=== PATIENT | male | born 1955 | race Caucasian/White ===

== ENCOUNTER 2016-11-22 11:14 | Outpatient (CLI) | payer OTHER | END 2016-11-22 11:15 | disposition home or self-care (01) | DX: G47.33 Obstructive sleep apnea (adult) (pediatric) (principal) ==

== ENCOUNTER 2017-01-07 13:30 | Outpatient (CLI) | payer OTHER ==
--- NOTE | 2017-01-07 15:32 | XRAY Report ---
TWO VIEW CHEST: 01/07/2017 CLINICAL INDICATION: Bronchitis, history of positive PPD. FINDINGS: Frontal and lateral views of the chest demonstrate a normal cardiac silhouette. Calcified left hilar lymph nodes are noted. No focal consolidation, effusion, or pneumothorax is present. IMPRESSION: CHANGES OF OLD GRANULOMATOUS DISEASE. NO EVIDENCE OF ACUTE CARDIOPULMONARY DISEASE. JOB #: [id number] EXT JOB #:[id number]
== END 2017-01-07 13:31 | disposition home or self-care (01) ==
LOC: DI 13:30
PROVIDERS: ATTEND Family Medicine
DX: J20.9 Acute bronchitis, unspecified (principal); R79.89 Other specified abnormal findings of blood chemistry; Z87.898 Personal history of other specified conditions
CPT/HCPCS: 71020

== ENCOUNTER 2018-03-01 08:00 | Outpatient (CLI) | payer OTHER ==
[2018-03-01 13:29] LABS: BASOPHILS # (AUTO) 0.1 10^3/uL (0.0-0.1); BASOPHILS % (AUTO) 0.8 %; EOSINOPHILS # (AUTO) 0.3 10^3/uL (0.0-0.7); EOSINOPHILS % (AUTO) 4.2 %; HGB - HEMOGLOBIN 15.5 g/dL (14.0-18.0); LYMPHOCYTES # (AUTO) 2.3 10^3/uL (1.5-3.5); LYMPHOCYTES % (AUTO) 31.5 %; MEAN CORPUSCULAR HEMOGLOBIN 32.5 pg (27.0-31.0); MEAN CORPUSCULAR HGB CONC 34.6 g/dL (32.0-36.0); MEAN PLATELET VOLUME 10.9 fL (7.4-11.4); MONOCYTES # (AUTO) 0.6 10^3/uL (0.0-1.0); MONOCYTES % (AUTO) 7.6 %; NEUTROPHILS # (AUTO) 4.1 10^3/uL (1.5-6.6); NEUTROPHILS % (AUTO) 55.9 %; PLT - PLATELET COUNT 175 10^3/uL (130-450); RED BLOOD COUNT 4.77 10^6/uL (4.70-6.10); RED CELL DISTRIBUTION WIDTH 13.8 % (12.0-15.0); WHITE BLOOD COUNT 7.4 x10^3/uL (4.8-10.8)
[2018-03-01 13:44] LABS: ALBUMIN 4.1 g/dL (3.2-5.5); ALBUMIN/GLOBULIN RATIO 1.5 (1.0-2.2); ALKALINE PHOSPHATASE 51 IU/L (42-121); ALT ALANINE AMINOTRANSFERASE 23 IU/L (10-60); AST ASPARTATE AMINOTRANSFERASE 26 IU/L (10-42); BILIRUBIN,TOTAL 1.1 mg/dL (0.2-1.0); BUN - BLOOD UREA NITROGEN 24 mg/dL (6-20); CARBON DIOXIDE - CO2 25 mmol/L (21-32); CHLORIDE 102 mmol/L (101-111); CHOL/HDL RATIO 5.7 (<5.0); CHOLESTEROL 239 mg/dL; CREATININE 1.3 mg/dL (0.6-1.2); GFR - MDRD 55 (>89); GLUCOSE 112 mg/dL (70-100); HDL CHOLESTEROL 42 mg/dL; LDL CHOLESTEROL,CALCULATED 161 mg/dL; LDL/HDL RATIO 3.8 (<3.6); SODIUM 136 mmol/L (135-145); TOTAL PROTEIN 6.8 g/dL (6.7-8.2); VLDL CHOLESTEROL 36 mg/dL
== END 2018-03-01 08:01 | disposition home or self-care (01) ==
LOC: LAB.WCP 08:00
PROVIDERS: ATTEND Family Medicine
DX: E78.5 Hyperlipidemia, unspecified (principal); Z12.5 Encounter for screening for malignant neoplasm of prostate; E03.9 Hypothyroidism, unspecified
CPT/HCPCS: 36415; 80053; 80061; 83721; 84153; 84443; 85025

== ENCOUNTER 2018-11-02 07:16 | Outpatient (CLI) | payer OTHER ==
[2018-11-02 13:23] LABS: BASOPHILS % (AUTO) 0.4 %; EOSINOPHILS # (AUTO) 0.2 10^3/uL (0.0-0.7); EOSINOPHILS % (AUTO) 1.9 %; HGB - HEMOGLOBIN 14.9 g/dL (14.0-18.0); LYMPHOCYTES # (AUTO) 2.2 10^3/uL (1.5-3.5); LYMPHOCYTES % (AUTO) 23.8 %; MEAN CORPUSCULAR HEMOGLOBIN 31.3 pg (27.0-31.0); MEAN CORPUSCULAR HGB CONC 33.4 g/dL (32.0-36.0); MEAN CORPUSCULAR VOLUME 93.7 fL (80.0-94.0); MONOCYTES # (AUTO) 0.6 10^3/uL (0.0-1.0); MONOCYTES % (AUTO) 6.1 %; NEUTROPHILS # (AUTO) 6.4 10^3/uL (1.5-6.6); NEUTROPHILS % (AUTO) 67.8 %; PLT - PLATELET COUNT 244 10^3/uL (130-450); RED BLOOD COUNT 4.75 10^6/uL (4.70-6.10); RED CELL DISTRIBUTION WIDTH 13.7 % (12.0-15.0); WHITE BLOOD COUNT 9.4 x10^3/uL (4.8-10.8)
[2018-11-02 13:34] LABS: ALBUMIN 3.8 g/dL (3.2-5.5); ALBUMIN/GLOBULIN RATIO 1.2 (1.0-2.2); BILIRUBIN,TOTAL 1.1 mg/dL (0.2-1.0); CREATININE 1.4 mg/dL (0.6-1.2)
== END 2018-11-02 07:17 | disposition home or self-care (01) ==
LOC: LAB.WCP 07:16
PROVIDERS: ATTEND Family Medicine
DX: R79.89 Other specified abnormal findings of blood chemistry (principal); E03.9 Hypothyroidism, unspecified; E78.5 Hyperlipidemia, unspecified; R73.9 Hyperglycemia, unspecified
CPT/HCPCS: 36415; 80053; 84443; 85025

== ENCOUNTER 2020-07-04 08:19 | Outpatient (CLI) | payer MEDICARE, OTHER ==
--- NOTE | 2020-07-04 10:19 | XRAY Report ---
PROCEDURE: Elbow 3 View RT INDICATIONS: RIGHT ELBOW PAIN TECHNIQUE: 3 views of the elbow were acquired. COMPARISON: None FINDINGS: Bones: No fractures or dislocations. Osteoarthritic changes in the elbow joint are seen. No suspici ous bony lesions. Soft tissues: No elbow joint effusion. No suspicious soft tissue calcifications. IMPRESSION: Elbow joint osteoarthritis. No fracture or dislocation. No significant joint effusion. Reviewed by: Rinku Zavala MD on 07/04/2020 9:18 AM [facility] Approved by: Rinku Zavala MD on 07/04/2020 9:18 AM [facility] Station ID: [id number]
--- NOTE | 2020-07-04 10:40 | XRAY Report ---
PROCEDURE: Shoulder 3 View RT INDICATIONS: RIGHT SHOULDER IMPINGEMENT SYNDROME TECHNIQUE: 3 views of the shoulder were acquired. COMPARISON: None. FINDINGS: Bones: No fractures or dislocations. No suspicious bony lesions. Osteoarthritic changes are noted i nvolving acromioclavicular joint and glenohumeral joint. Visualized ribs appear intact. Soft tissues: No suspicious soft tissue calcifications. IMPRESSION: No shoulder fracture or dislocation. Mild to moderate acromioclavicular joint and glenoh umeral joint osteoarthritis. Reviewed by: Rinku Zavala MD on 07/04/2020 9:38 AM [facility] Approved by: Rinku Zavala MD on 07/04/2020 9:38 AM [facility] Station ID: [id number]
--- NOTE | 2020-07-04 11:03 | XRAY Report ---
PROCEDURE: Chest 2 View X-Ray INDICATIONS: POSITIVE PPD TECHNIQUE: 2 view(s) of the chest. COMPARISON: None. FINDINGS: Surgical changes and devices: None. Lungs and pleura: No pleural effusions or pneumothorax. Lungs are clear. Mediastinum: Mediastinal contours are normal. Heart size is normal. Bones and chest wall: No suspicious bony abnormalities. Soft tissues appear unremarkable. IMPRESSION: No acute cardiopulmonary pathology. No radiographic evidence of active TB. Reviewed by: Rinku Zavala MD on 07/04/2020 10:01 AM [facility] Approved by: Rinku Zavala MD on 07/04/2020 10:01 AM [facility] Station ID: [id number]
== END 2020-07-04 23:59 | disposition home or self-care (01) ==
LOC: DI.WCP 08:19
PROVIDERS: ATTEND Internal Medicine
DX: M19.021 Primary osteoarthritis, right elbow (principal); M19.011 Primary osteoarthritis, right shoulder; M75.41 Impingement syndrome of right shoulder; R76.11 Nonspecific reaction to tuberculin skin test without active tuberculosis

== ENCOUNTER 2020-07-24 07:15 | Outpatient (CLI) | payer MEDICARE ==
[2020-07-24 13:32] LABS: BASOPHILS # (AUTO) 0.1 10^3/uL (0.0-0.1); BASOPHILS % (AUTO) 0.9 %; EOSINOPHILS # (AUTO) 0.2 10^3/uL (0.0-0.7); EOSINOPHILS % (AUTO) 2.9 %; HCT - HEMATOCRIT 45.9 % (42.0-52.0); HGB - HEMOGLOBIN 15.2 g/dL (14.0-18.0); LYMPHOCYTES # (AUTO) 2.2 10^3/uL (1.5-3.5); LYMPHOCYTES % (AUTO) 27.4 %; MEAN CORPUSCULAR HEMOGLOBIN 31.9 pg (27.0-31.0); MEAN CORPUSCULAR HGB CONC 33.1 g/dL (32.0-36.0); MEAN CORPUSCULAR VOLUME 96.2 fL (80.0-94.0); MEAN PLATELET VOLUME 11.9 fL (7.4-11.4); MONOCYTES # (AUTO) 0.6 10^3/uL (0.0-1.0); MONOCYTES % (AUTO) 7.6 %; NEUTROPHILS % (AUTO) 60.7 %; PLT - PLATELET COUNT 200 10^3/uL (130-450); RED BLOOD COUNT 4.77 10^6/uL (4.70-6.10); RED CELL DISTRIBUTION WIDTH 13.6 % (12.0-15.0); WHITE BLOOD COUNT 8.2 x10^3/uL (4.8-10.8)
[2020-07-24 13:56] LABS: ALBUMIN 4.1 g/dL (3.2-5.5); ALBUMIN/GLOBULIN RATIO 1.4 (1.0-2.2); ALKALINE PHOSPHATASE 52 IU/L (42-121); ALT ALANINE AMINOTRANSFERASE 24 IU/L (10-60); AST ASPARTATE AMINOTRANSFERASE 21 IU/L (10-42); BILIRUBIN,TOTAL 1.4 mg/dL (0.2-1.0); BUN - BLOOD UREA NITROGEN 17 mg/dL (6-20); CALCIUM 9.3 mg/dL (8.5-10.3); CARBON DIOXIDE - CO2 26 mmol/L (21-32); CHLORIDE 103 mmol/L (101-111); CHOL/HDL RATIO 7.1 (<5.0); CHOLESTEROL 250 mg/dL; CREATININE 1.5 mg/dL (0.6-1.2); GFR - MDRD 47 (>89); GLUCOSE 109 mg/dL (70-100); HDL CHOLESTEROL 35 mg/dL; LDL CHOLESTEROL,CALCULATED 170 mg/dL; LDL/HDL RATIO 4.9 (<3.6); POTASSIUM 4.2 mmol/L (3.5-5.0); SODIUM 137 mmol/L (135-145); TOTAL PROTEIN 7.1 g/dL (6.7-8.2); TRIGLYCERIDES 225 mg/dL; VLDL CHOLESTEROL 45 mg/dL
[2020-07-24 14:04] LABS: THYROID STIMULATING HORMONE 12.05 uIU/mL (0.34-5.60)
[2020-07-24 14:13] LABS: CREATININE,URINE 209.4 mg/dL; MICROALBUM/CREATININE RATIO,UR 2.4 ug/mg (<30.0); MICROALBUMIN,URINE 0.5 mg/dL (0-300.0)
[2020-07-24 15:00] LABS: FREE T4 (FREE THYROXINE) 0.89 ng/dL (0.58-1.64)
[2020-07-24 19:37] LABS: ESTIMATED AVERAGE GLUCOSE 117 mg/dL (70-100); HEMOGLOBIN A1c% 5.7 % (4.27-6.07)
== END 2020-07-24 23:59 | disposition home or self-care (01) ==
LOC: LAB.WCP 07:15
PROVIDERS: ATTEND Internal Medicine
DX: E78.2 Mixed hyperlipidemia (principal); R73.01 Impaired fasting glucose; Z12.5 Encounter for screening for malignant neoplasm of prostate; E03.9 Hypothyroidism, unspecified; E78.5 Hyperlipidemia, unspecified
CPT/HCPCS: 36415; 80053; 80061; 82043; 82570; 83036; 84439; 84443; 85025; G0103; 83721; 84153

== ENCOUNTER 2020-08-06 16:06 | Outpatient (CLI) | payer MEDICARE ==
[2020-08-06 17:01] VITALS: BP 114/78
--- NOTE | 2020-08-06 17:01 | SLEEP CARE CONSULTATION ---
Information from patient questionnaire entered by Svitlana Chapin. I have reviewed and concur with the information entered by Svitlana Chapin. This document represents the service I personally performed and the decisions made by me, Mayelin Fonseca ARNP. History of Present Illness Service Date and Time: 08/06/2020 1606 Reason for Visit: New patient, Previously diagnosed sleep apnea, Re-establish care Chief Complaint: reports: Snoring, Observed pauses in breathing, Frequent awakenings at night Date of Onset: 10 + years Usual bedtime: 10:00 - 11:00 PM Time it takes to fall asleep: 10-15 min Snores at night: Yes Observed to quit breathing while asleep: Yes Sleeps alone due to snoring: No Number of times waking at night: 1-2 times Reasons for waking at night: reports: Pain, Bathroom. denies: Choking, Snoring, Gasping for air Toss, Turn, or Twitch while sleeping: No Recalls having dreams: No Usually gets out of bed at: 6:30 AM Feels refreshed in the morning: Yes Morning headache: No Sleepy or fatigued during the day: Yes Ever fallen asleep while driving: No Takes day naps: No Dreams during day naps: No Prior sleep studies: Yes Year and Where: 2013 [facility] Type of Sleep Study: Polysomnography Additional HPI information: I had the pleasure of seeing NAFISA TAVAREZ today regarding the possibility of him being able to restart his CPAP therapy. He was originally diagnosed with obstructive sleep apnea with an average AHI of 11.9. He has not been using his machine for the last 2 years. - Parasomnia Symptoms Ever been unable to move upon waking from sleep: No Walks in sleep: No Talks in sleep: No Ever acted out dreams in sleep: No Ever felt weak in the knees when startled or emotional: Yes Bothered by creepy, crawly, restless sensations in legs: No Problems with memory or concentration: No Subjective Initial [place] Sleepiness Scale score: 5 (in 2020) Past Medical History Past Medical History: reports: Arthritis, Hypothyroidism, GERD. 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 Patient is and lives in [place]. Have you smoked in the past 12 months: Yes Cigarettes per day (20/pack): 20 Years of smokin Quit date: 2004 Smoking Pack Years: 15.0 Alcohol use: Yes Alcohol amount and frequency: Occasionally Caffeine use: Yes Caffeine amount and frequency: 4 cups daily Family History Family history of sleep disordered breathing: Yes (Father, daughter (sleep apnea)) Family Hx Sleep Apnea: Father: Snoring, Sleep apnea - Treated Allergies and Home Medications Drug allergies reviewed: Yes (Statins) Home medication list reviewed: Yes Allergy and home medication list: Levothyroxine 50 mcg Review of Systems Weight gain over past 5 years: 10 Cardiovascular: denies: high blood pressure Respiratory: reports: shortness of breath, sputum production, chronic cough Gastrointestinal: reports: heartburn Neurological: denies: headaches Psychiatric: denies: anxiety, depression Ear/Nose/Throat: reports: nasal congestion, sinus problems, wisdom teeth removed. denies: tonsillectomy Endocrine: reports: thyroid disease Musculoskeletal: reports: joint pain, neck pain Immunologic: reports: sneezing (runny nose) Physical Exam Blood Pressure: 114/78 Cuff size: wrist Heart Rate: 76 O2 Saturation: 98 Height: 5 ft 10 in Weight: 241 lb Body Mass Index: 34.5 BMI Classification: Obese Nostrils: patent to airflow Turbinates: swollen Mouth and throat: narrow oropharynx Uvula visualization: 25% Mallampati Class III Tongue: enlarged in size with teeth powell on lateral edges Tonsils: 1+ Neck: normal w/o lymphadenopathy or thyromegaly Heart: regular rate and rhythm Lungs: clear bilaterally Impression and Plan 1. Obstructive Sleep Apnea-Hypopnea Syndrome, as previously diagnosed in 2014 and as suggested by a continued history of loud and irregular snoring, observed cessation of breath while asleep, and fatigue. He would like to restart his CPAP therapy. I advised the patient that he will need to repeat a sleep study for us to verify his diagnosis and severity before we can restart his therapy. He voiced understanding. I informed the patient that we can do a HST sleep study and obtained agreement to proceed. * Schedule polysomnography/HST. * Avoid long distance driving or driving when feeling sleepy. * Avoid alcohol, sedative and muscle relaxant around bedtime. * Attempt to lose weight. * Review instructions provided by trained office staff on how to prepare for the sleep study. * Return for follow-up after sleep study completed. Visit Type: In Office Time Spent with Patient (minutes): 30 Provider Statement: I spent 100% of the Face to Face Visit with the patient with greater than 50% spent counseling the patient and coordination of care.
== END 2020-08-06 16:07 | disposition home or self-care (01) ==
LOC: SC 16:06
PROVIDERS: ATTEND Nurse Practitioner Family
DX: G47.33 Obstructive sleep apnea (adult) (pediatric) (principal); E66.9 Obesity, unspecified; Z68.34 Body mass index [BMI] 34.0-34.9, adult
CPT/HCPCS: 99203; G0463; 99212

== ENCOUNTER 2020-08-21 16:11 | Outpatient (CLI) | payer MEDICARE | END 2020-08-21 16:12 | disposition home or self-care (01) | LOC: SC 16:11 | PROVIDERS: ATTEND Nurse Practitioner Family | DX: G47.33 Obstructive sleep apnea (adult) (pediatric) (principal); R09.02 Hypoxemia | CPT/HCPCS: G0399 ×2; 95806 ==

== ENCOUNTER 2020-08-26 15:56 | Outpatient (CLI) | payer MEDICARE ==
--- NOTE | 2020-08-26 16:35 | SLEEP CARE CONSULTATION ---
Information from patient questionnaire entered by Svitlana Chapin. I have reviewed and concur with the information entered by Svitlana Chapin. This document represents the service I personally performed and the decisions made by , Mayelin Fonseca ARNP. History of Present Illness Service Date and Time: 08/26/2020 1556 Initial [place] Sleepiness Scale score: 5 (in 2020) Current [place] Sleepiness Scale score: 10 Additional HPI information: NAFISA TAVAREZ returns for follow up and results of the recently performed home sleep study. I explained the pathophysiology behind obstructive sleep apnea. We then spent quite a bit of time discussing different treatment options. For mild obstructive sleep apnea, surgery and oral appliance are alternatives to nasal CPAP therapy but in moderate or severe cases, nasal CPAP is the most effective a nd reliable treatment. The patient would like to restart the nasal CPAP therapy. Nasal autoCPAP set at 4-15 cmH20 will be ordered with rationale explained. A manual titration study will be ordered if unable to find optimal pressure with office adjustments. Sleep Study - Results Type of Sleep Study: Home sleep study Prior sleep studies: Yes Year and Where: 2013 [facility] Polysomnography/Home Sleep Study results: Physician Impression: The quality of the study is good. The length of the study is adequate (> 240 minutes). Please also see the tabulated and graphic data. 1. Obstructive Sleep Apnea-Hypopnea (ICD-10 G47.33), moderate, with an AHI of 24.1/hr and dia SaO2 of 78%. During the study, the patient had 135 apneas (134 obstructive, 0 central, 1 mixed) and 47 hypopneas. The longest episode lasted 63.0 seconds. The respiratory events occurred more frequently during supine sleep (supine AHI was 26.3 and non-supine, 14.22). 2. Hypoxemia (ICD-10 R09.02), moderate, with the lowest oxygen saturation of 78 % and 8.7 minutes with SaO2 under 90%. Baseline oxygen saturation was normal (Average oxygen saturation was 94%). Allergies and Home Medications Home medication list reviewed: Yes (reduced levothyroxine to 50 mcg) Review of Systems Review of systems same as previous: Yes (no changes) Physical Exam Heart Rate: 76 O2 Saturation: 98 Height: 5 ft 10 in Weight: 234 lb Body Mass Index: 33.5 BMI Classification: Obese Impression and Plan 1. Obstructive Sleep Apnea-Hypopnea Syndrome, moderate, with lowest oxygen saturation of 78%. Patient had previous diagnosis of sleep apnea but needed to re-qualify for treatment since he stopped using the machine 2 years ago. Positive pressure therapy could benefit gastric reflux. The patient will be re- started on nasal autoCPAP therapy with pressure set at 4-15 cmH2O. Patient would like to use the machine he has which he states is about 5 years old. I discussed options for getting a new machine since it was 5 years old but he decided that he would use the old one. A manual titration study will be completed if unable to find optimal treatment pressure with office adjustments. Compliance guidelines also reviewed. A copy of compliance guidelines will be given for reference at check out. Because the apnea is more severe supine, I instructed to avoid sleeping supine using pillow positioning until able to start CPAP use. 2. Hypoxemia, moderate. Patient's lowest oxygen saturation was 78 % and he spent 8.7 minutes with SaO2 under 90%. His baseline oxygen saturation average oxygen saturation was 94% which is normal. Follow up with PCP as necessary. * Nasal auto CPAP therapy, pressure at 4-15 cm H2O. * Attempt to lose weight. * Avoid alcohol consumption near bedtime. * Avoid supine sleep until using CPAP. * The patient is again cautioned about driving until sleepiness completely resolves. * Return one month after CPAP obtained. I will assess response to therapy and compliance at that time. Counseling Topics: Weight loss health impact Visit Type: In Office Time Spent with Patient (minutes): 21 Provider Statement: I spent 100% of the Face to Face Visit with the patient with greater than 50% spent counseling the patient and coordination of care.
== END 2020-08-26 15:57 | disposition home or self-care (01) ==
LOC: SC 15:56
PROVIDERS: ATTEND Nurse Practitioner Family
DX: G47.33 Obstructive sleep apnea (adult) (pediatric) (principal); R09.02 Hypoxemia; E66.9 Obesity, unspecified; Z68.33 Body mass index [BMI] 33.0-33.9, adult
CPT/HCPCS: 99213; G0463; 99212

== ENCOUNTER 2020-10-24 16:00 | Outpatient (CLI) | payer MEDICARE ==
--- NOTE | 2020-10-24 16:30 | SLEEP CARE CONSULTATION ---
Information from patient questionnaire entered by Svitlana Chapin. I have reviewed and concur with the information entered by Svitlana Chapin. This document represents the service I personally performed and the decisions made by , Mayelin Fonseca ARNP. History of Present Illness Service Date and Time: 10/24/2020 1600 Previous diagnosis: Moderate, Obstructive Sleep Apnea-Hypopnea Syndrome AHI: 24.1 (11.4 in 2013) Reason for follow up: first compliance after device update Equipment type: CPAP Equipment obtained from: [employer] (getting supplies as needed) Mask style: Nasal Backup mask available: No (will keep old mask when replaced ) Last cushion change: 1 month Prior sleep studies: Yes Year and Where: 2020 and 2013 [facility] Type of Sleep Study: Home sleep study HPI additional information: NAFISA TAVAREZ was diagnosed to have moderate, AHI 24.1, obstructive sleep apnea- hypopnea syndrome and returned today for CPAP therapy first compliance after updating device follow-up. CPAP Compliance Data - Data Reviewed with Patient Average duration of nightly device use: 5 h 13 min Compliance rate %: 60 Current pressure setting (cmH2O): 4-15 (median 9.0, avg 11.4, max 12.0) Humidity settin Heated hose settin Average residual AHI: 4.2 Average large leak: 0 sec Subjective Missed days of use due to: reports: other (caregiving with autistic grandson) Patient concerns: reports: nasal congestion. denies: aerophagia, mask discomfort, air blowing in eyes, mask leak noise, condensation in mask/hose (occasional, due to work situation mostly ([employer] environment)), dry mouth, nose, throat, epistaxis, other Observed to snore while using device: No Current pressure setting perceived as: comfortable On therapy, patient: reports: sleeping better, awakening more refreshed, being more awake and alert during the day, more rested overall. denies: drowsiness while driving Initial [place] Sleepiness Scale score: 5 (in 2020) Current [place] Sleepiness Scale score: 7 Allergies and Home Medications Home medication list reviewed: Yes (no changes) Review of Systems Review of systems same as previous: Yes (no changes) Physical Exam Heart Rate: 67 O2 Saturation: 99 Height: 5 ft 10 in Weight: 235 lb Body Mass Index: 33.7 BMI Classification: Obese Impression and Plan 1. Obstructive Sleep Apnea-Hypopnea Syndrome, moderate, with fair treatment compliance and fair apnea control. On CPAP therapy, the patient has better sleep quality and is more rested overall. He does gets some nasal congestion occasionally that happens on days he is working. He works in a [employer] environment and is not always able to wear good PPE (harder to get since Covid started). He likes the pressure setting and would like to continue at current settings. He is satisfied with treatment. He is only 60% compliant in last 30 days. He has time he falls asleep without his mask on because he is resting with his autistic grandson until he falls asleep and will fall asleep in his grandson's room. He has had several days where he does not get at least four hours of sleep which is reducing his compliance. I advised him to use with all sleep and try to not fall asleep before going back to own bed for sleep. He voiced understanding. I will have him follow up in 1 month to recheck compliance. Patient's apnea severity and rationale for treatment to reduce apnea, improve sleep quality and reduce cardiovascular and cerebrovascular events was reviewed. I also reviewed the benefit of consistent device use of CPAP for gastric reflux. * Continue autoCPAP pressure at 4-15 cmH2O * Notify me if snoring with mask or feeling that the pressure is too much or too little * Attempt to lose weight * Call this office if any problems using CPAP * Return for follow up in 1 months, or sooner if concerns arise Counseling Topics: Spare mask, Weight loss health impact Visit Type: In Office Time Spent with Patient (minutes): 19 Provider Statement: I spent 100% of the Face to Face Visit with the patient with greater than 50% spent counseling the patient and coordination of care.
== END 2020-10-24 16:01 | disposition home or self-care (01) ==
LOC: SC 16:00
PROVIDERS: ATTEND Nurse Practitioner Family
DX: G47.33 Obstructive sleep apnea (adult) (pediatric) (principal); E66.9 Obesity, unspecified; Z68.33 Body mass index [BMI] 33.0-33.9, adult
CPT/HCPCS: 99212; G0463

== ENCOUNTER 2020-12-05 16:09 | Outpatient (CLI) | payer MEDICARE ==
--- NOTE | 2020-12-05 16:32 | SLEEP CARE CONSULTATION ---
Information from patient questionnaire entered by Svitlana Chapin. I have reviewed and concur with the information entered by Svitlana Chapin. This document represents the service I personally performed and the decisions made by , Mayelin Fonseca ARNP. History of Present Illness Service Date and Time: 12/05/2020 1609 Previous diagnosis: Moderate, Obstructive Sleep Apnea-Hypopnea Syndrome AHI: 24.1 (11.4 in 2013) Reason for follow up: one month (followup - compliance) Equipment type: CPAP Equipment obtained from: [employer] (has not got any supplies since updating machine, needs new cushions) Mask style: Nasal Backup mask available: No (needs new supplies) Last cushion change: long time Prior sleep studies: Yes Year and Where: 2020 & 2013 [facility] Type of Sleep Study: Home sleep study HPI additional information: NAFISA TAVAREZ was diagnosed to have moderate, AHI 24.1, obstructive sleep apnea- hypopnea syndrome and returned today for CPAP therapy one month compliance follow-up. CPAP Compliance Data - Data Reviewed with Patient Average duration of nightly device use: 6 h 27 min Compliance rate %: 73.3 Current pressure setting (cmH2O): 4-15 Humidity settin Heated hose settin Average residual AHI: 3.0 Average large leak: 5 sec Subjective Missed days of use due to: reports: other (Caregiving) Patient concerns: denies: aerophagia, mask discomfort, air blowing in eyes, mask leak noise, condensation in mask/hose, nasal congestion, dry mouth, nose, throat, epistaxis, other Observed to snore while using device: No Current pressure setting perceived as: comfortable On therapy, patient: reports: sleeping better, awakening more refreshed, being more awake and alert during the day, more rested overall. denies: drowsiness while driving Initial [place] Sleepiness Scale score: 5 (in 2020) Current [place] Sleepiness Scale score: 8 Allergies and Home Medications Home medication list reviewed: Yes (no changes) Review of Systems Review of systems same as previous: Yes (no changes) Physical Exam Heart Rate: 69 O2 Saturation: 97 Height: 5 ft 10 in Weight: 239 lb Body Mass Index: 34.2 BMI Classification: Obese Impression and Plan 1. Obstructive Sleep Apnea-Hypopnea Syndrome, moderate, with good treatment compliance and good apnea control. On CPAP therapy, the patient has better sleep quality and is more rested overall. He has not received more supplies since updating machine. He needs to change out his mask and does not have any new cushions at this time. He washes the mask every morning and has no complaints of air leak noises or air blowing into eyes. He will be given the phone number of [employer] and he is to call to find out about getting his supplies. He is satisfied with his treatment. He denies aerophagia, skin irritation, oral dryness, epistaxis or nasal congestion. Patient's apnea severity and rationale for treatment to reduce apnea, improve sleep quality and reduce cardiovascular and c erebrovascular events was reviewed. I also reviewed the benefit of consistent device use of CPAP for gastric reflux. * Continue auto CPAP pressure at 4-15 cmH2O * Notify me if snoring with mask or feeling that the pressure is too much or too little * Attempt to lose weight * Call this office if any problems using CPAP * Return for follow up in 1 year, or sooner if concerns arise Counseling Topics: Spare mask, Weight loss health impact Visit Type: In Office Time Spent with Patient (minutes): 13 Provider Statement: I spent 100% of the Face to Face Visit with the patient with greater than 50% spent counseling the patient and coordination of care.
== END 2020-12-05 16:10 | disposition home or self-care (01) ==
LOC: SC 16:09
PROVIDERS: ATTEND Nurse Practitioner Family
DX: G47.33 Obstructive sleep apnea (adult) (pediatric) (principal); E66.9 Obesity, unspecified; Z68.34 Body mass index [BMI] 34.0-34.9, adult
CPT/HCPCS: 99212; G0463

== ENCOUNTER 2020-12-26 08:00 | Outpatient (CLI) | payer MEDICARE ==
[2020-12-26 17:56] LABS: ALT ALANINE AMINOTRANSFERASE 22 IU/L (10-60); BUN - BLOOD UREA NITROGEN 23 mg/dL (6-20); CALCIUM 9.2 mg/dL (8.5-10.3); CARBON DIOXIDE - CO2 24 mmol/L (21-32); CHLORIDE 108 mmol/L (101-111); CHOL/HDL RATIO 4.5 (<5.0); CHOLESTEROL 177 mg/dL; CREATININE 1.5 mg/dL (0.6-1.2); GFR - MDRD 47 (>89); GLUCOSE 102 mg/dL (70-100); HDL CHOLESTEROL 39 mg/dL; LDL CHOLESTEROL,CALCULATED 112 mg/dL; LDL/HDL RATIO 2.9 (<3.6); POTASSIUM 4.5 mmol/L (3.5-5.0); SODIUM 139 mmol/L (135-145); TRIGLYCERIDES 128 mg/dL; VLDL CHOLESTEROL 26 mg/dL
[2020-12-26 18:06] LABS: THYROID STIMULATING HORMONE 5.48 uIU/mL (0.34-5.60)
== END 2020-12-26 23:59 | disposition home or self-care (01) ==
LOC: LAB.WCP 08:00
PROVIDERS: ATTEND Internal Medicine
DX: N18.31 Chronic kidney disease, stage 3a (principal); E78.5 Hyperlipidemia, unspecified; E03.9 Hypothyroidism, unspecified
CPT/HCPCS: 36415; 80048; 80061; 83721; 84443; 84460

== ENCOUNTER 2021-04-13 07:00 | Outpatient (CLI) | payer MEDICARE ==
[2021-04-13 18:33] LABS: FECAL OCCULT BLOOD (FIT) NEGATIVE (NEGATIVE)
== END 2021-04-13 23:59 | disposition home or self-care (01) ==
LOC: LAB 07:00
PROVIDERS: ATTEND Internal Medicine
DX: Z12.11 Encounter for screening for malignant neoplasm of colon (principal)
CPT/HCPCS: 82274